=== PATIENT | female | born 1985 | race Caucasian/White ===

== ENCOUNTER 2019-10-26 15:48 | Emergency (ER) | payer OTHER ==
[2019-10-26 15:56] VITALS: BP 114/74; PULSE 91; BMI 23.8
--- NOTE | 2019-10-26 16:30 | PDOC ---
History of Present Illness <Yaya Ordonez - Last Filed: 10/26/19 16:49> - General History Source: Patient - History of Present Illness Timing/Duration: reports: this afternoon Location: reports: extremities <Micha Valencia Last Filed: 10/26/19 16:58> - General Chief Complaint: Laceration Stated Complaint: R/LEG INJURY Time Seen by Provider: 10/26/19 16:03 Past History <Yaya Ordonez - Last Filed: 10/26/19 16:49> - Medical History COPD: No - Reproductive History Is Patient Now?: No - Immunization History Immunization Up to Date: Yes - Psycho-Social/Smoking History Smoking History: Never smoked - Substance Abuse Hx (Audit-C & DAST Scrn) How often the patient has a drink containing alcohol: Never Score: In Men: 4 or > Positive; In Women: 3 or > Positive: 0 Screen Result (Pos requires Nsg. Audit-10AR): Negative In the last yr the pt used illegal drug/Rx for NonMed reason: No Score: Yes response is considered Positive: 0 Screen Result (Positive result requires Nsg. DAST-10): Negative <Micha Valencia Last Filed: 10/26/19 16:58> - Medical History Allergies/Adverse Reactions: Allergies Allergy/AdvReac Type Severity Reaction Status Date / Time No Known Allergies Allergy Verified 10/26/19 15:53 Home Medications: Ambulatory Orders NK [No Known Home Medication] 10/26/19 Review of Systems - Review of Systems Neurological: No: Numbness, Tingling <Micha Valencia - Last Filed: 10/26/19 16:58> *Physical Exam - Vital Signs Last Vital Signs Temp Pulse Resp BP Pulse Ox 91 H 14 114/74 99 10/26/19 15:54 10/26/19 15:54 10/26/19 15:54 10/26/19 15:54 <Yaya Ordonez - Last Filed: 10/26/19 16:49> - Vital Signs Last Vital Signs Temp Pulse Resp BP Pulse Ox 91 H 14 114/74 99 10/26/19 15:54 10/26/19 15:54 10/26/19 15:54 10/26/19 15:54 - Physical Exam General Appearance: Yes: Appropriately Dressed. No: Apparent Distress HEENT: positive: Normal Voice Neck: positive: Supple Respiratory/Chest: negative: Respiratory Distress Integumentary: positive: Dry, Warm Neurologic: positive: Fully Oriented, Alert, Normal Mood/Affect (~1cm superficial lac to lateral R leg w/ flap) <Micha Valencia Last Filed: 10/26/19 16:58> Procedures - Laceration/Wound Repair Right Anterior Lateral Calf Wound Length: to 2.5 cm Wound Explored: no foreign body present Wound's Depth, Shape: superficial, irregular Irrigated w/ Saline: Yes Anesthesia: 1% Lidocaine Amount of Anesthetic (ccs): 3 Wound Debrided: minimal Wound Repaired With: Sutures Suture Size/Type: 4:0 Number of Sutures: 8 Layer Closure: No Progress: 10/26/19 16:51 500cc sterile water pressure irrigation approx 3cc local used 4-0 nylon x8 with good approximation and hemostasis bacitracin applied patient tolerated procedure well procedure done in conjunction with Dr. Danisha Daley <Yaya Ordonez - Last Filed: 10/26/19 16:49> Medical Decision Making - Medical Decision Making 10/26/19 16:57 34-year-old female no significant history here with laceration to the right leg. Patient states she was throwing out a bag of garbage today when piece of glass struck her leg. Tetanus up-to-date see exam Laceration -Tetanus UTD -Lac repair performed by ED resident w/ 3rd year present throughout procedure (8 interrupted sutures placed) -Wound check as needed in 2 days <Micha Valencia - Last Filed: 10/26/19 16:58> Discharge <Yaya Ordonez - Last Filed: 10/26/19 16:49> - Discharge Information Problems reviewed: Yes <Micha Valencia Last Filed: 10/26/19 16:58> - Discharge Information Clinical Impression/Diagnosis: Laceration of leg Qualifiers: Encounter type: initial encounter Laterality: right Qualified Code(s): S81.811A - Laceration without foreign body, right lower leg, initial encounter Condition: Good Disposition: HOME - Patient Discharge Instructions Patient Printed Discharge Instructions: DI for Laceration Repair Additional Instructions: Keep dressing in place for at least 24 hours after which one can be opened to air. You can gently cleaned wound with mild soap and water after 24 hours to prevent crusting over the suture knots. You can also apply an antibiotic ointment twice a day until sutures are removed. Return for redness, discharge or fever Sutures are removed in 8-10 days
== END 2019-10-26 17:15 | disposition home or self-care (01) ==
LOC: JERFT 15:48
PROC: 0HQKXZZ Repair Right Lower Leg Skin, External Approach (ICD-10-PCS; principal; 2019-10-26)
DX: S81.811A Laceration without foreign body, right lower leg, initial encounter (principal)
CPT/HCPCS: 99282-25